=== PATIENT | male | born 2000 | race African-American/Black ===

== ENCOUNTER 2021-03-14 15:23 | Emergency (ER) | payer OTHER ==
[~2021-03-14] VITALS: Ht 193 cm; Wt 87.5 kg
[2021-03-14 16:00] LABS: BASO % 1 % (0-3); EOS # 0.1 x10^3/uL (0.0-0.7); EOS % 2 % (0-3); HEMATOCRIT 42.6 % (39.0-53.0); HEMOGLOBIN 14.6 g/dL (13.0-17.5); LYMPH # 1.7 x10^3/uL (1.0-4.8); LYMPH % 46 % (24-48); MEAN CORPUSCULAR HEMOGLOBIN 30 pg (25-35); MEAN CORPUSCULAR HGB CONC 34 g/dL (31-37); MEAN CORPUSCULAR VOLUME 86 fL (79-100); MONO # 0.3 x10^3/uL (0.0-1.1); MONO % 9 % (0-9); NEUT # 1.5 x10^3/uL (1.8-7.7); NEUT % 41 % (31-73); PLATELET COUNT 249 x10^3/uL (140-400); RED BLOOD COUNT 4.94 x10^6/uL (4.30-5.70); RED CELL DISTRIBUTION WIDTH 13.9 % (11.5-14.5); WHITE BLOOD COUNT 3.6 x10^3/uL (4.0-11.0)
[2021-03-14 16:08] LABS: CALCIUM 8.7 mg/dL (8.5-10.1); CREATININE 0.9 mg/dL (0.7-1.3); GFR 108.7; POTASSIUM 3.6 mmol/L (3.5-5.1)
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
[2021-03-14 16:10] LABS: BARBITURATES NEG (NEG); BENZODIAZEPINES NEG (NEG); CANNABINOIDS NEG (NEG); COCAINE NEG (NEG); METHADONE NEG (NEG); OPIATES NEG (NEG); PHENCYCLIDINE NEG (NEG)
[2021-03-14 16:14] LABS: ALBUMIN 3.8 g/dL (3.4-5.0); ALBUMIN/GLOBULIN RATIO 1.2 (1.0-1.7); TOTAL BILIRUBIN 1.6 mg/dL (0.2-1.0)
[2021-03-14 16:15] LABS: ACETAMIN < 2 mcg/ml (10-30); ETHANOL 170 mg/dL (0-10); SALIC < 2.8 mg/dL (2.8-20.0)
[2021-03-14 16:16] LABS: AMPHETAMINE/METHAMPHETAMINE NEG (NEG)
[2021-03-14 17:43] VITALS: BP 119/62
== END 2021-03-14 19:26 | disposition home or self-care (01) ==
LOC: ER 15:23
DX: F10.129 Alcohol abuse with intoxication, unspecified (principal); Y90.6 Blood alcohol level of 120-199 mg/100 ml; Z20.822 Contact with and (suspected) exposure to COVID-19; R45.850 Homicidal ideations
CPT/HCPCS: 36415; 80053; 80307; 80329; 83735; 85025; 87426; 99285; G0480; U0003; U0005